=== PATIENT | male | born 1990 | race Caucasian/White ===

== ENCOUNTER 2017-08-14 10:45 | Inpatient (IN) | payer MEDICAID ==
[~2017-08-14] VITALS: Ht 172.7 cm; Wt 58.5 kg
[2017-08-14 10:50] VITALS: BP 109/71
--- NOTE | 2017-08-14 11:00 | NUR ---
PATIENT PRESENTS TO ED WITH MID ABD PAIN SINCE LAST NIGHT; VOMITING X3 EPISODES; ALLERGY TO EGGS AND ACCIDENTLY CONSUMED EGGS LAST NIGHT DENIES HX IBUPROFEN 600MG TAKEN 0900; DENIES DIARRHEA; SKIN IS PINK/WARM/DRY; AAOX4 WITH EVEN AND STEADY GAIT; LUNGS CLEAR BL; HR EVEN AND REGULAR; PT DENIES ANY FEVER, CP, SOB, OR COUGH AT THIS TIME; PATIENT STATES PAIN OF 3/10 AT THIS TIME; VSS; PATIENT POSITIONED FOR COMFORT; HOB ELEVATED; BEDRAILS UP X2; BED DOWN. ER MD MADE AWARE OF PT STATUS.
[2017-08-14] MEDS ORDERED: NACL 0.9% 1,000 ML IV ONE (11:10)
[2017-08-14] MEDS ORDERED: ONDANSETRON 4 MG/2 ML VIAL IVP ONE (11:10)
[2017-08-14 11:44] LABS: BASOPHILS # (AUTO) 0.2 K/uL (0.00-0.22); BASOPHILS % (AUTO) 1.4 % (0.0-2.0); EOSINOPHILS # (AUTO) 0.5 K/uL (0-0.4); EOSINOPHILS % (AUTO) 3.9 % (0.0-4.0); HEMATOCRIT 49.5 % (36-52); HEMOGLOBIN 16.5 g/dL (12.0-18.0); LYMPHOCYTES # (AUTO) 0.6 K/uL (2.0-11.5); LYMPHOCYTES % (AUTO) 4.3 % (20.5-51.1); MEAN CORPUSCULAR HEMOGLOBIN 30 pg (27-31); MEAN CORPUSCULAR HGB CONC 33 g/dL (33-37); MEAN CORPUSCULAR VOLUME 90 fL (80-94); MONOCYTES # (AUTO) 0.6 K/uL (0.8-1.0); MONOCYTES % (AUTO) 4.7 % (1.7-9.3); NEUTROPHILS # (AUTO) 11.8 K/uL (1.8-7.7); NEUTROPHILS % (AUTO) 85.7 % (42.2-75.2); PLATELET COUNT (AUTO) 322 K/uL (140-450); RED BLOOD CELL COUNT(AUTO) 5.48 MIL/uL (4.20-6.10); RED CELL DISTRIBUTION WIDTH 12.3 % (11.6-13.7); WHITE BLOOD COUNT (AUTO) 13.7 K/uL (4.8-10.8)
[2017-08-14 12:10] LABS: ALBUMIN 4.1 g/dL (3.4-5.0); ANION GAP 14.5 (8-16); CARBON DIOXIDE 28.1 mmol/L (21-32); CREATININE 1.1 mg/dL (0.7-1.3); POTASSIUM 4.6 mmol/L (3.5-5.1); TOTAL BILIRUBIN 0.9 mg/dL (0.0-1.0)
[2017-08-14] MEDS ORDERED: fentaNYL 0.05 MG/ML VIAL IVP ONE (12:35)
[2017-08-14] MEDS: NACL 0.9% 1,000 ML IV SCH ×2 (12:57→23:21)
[2017-08-14] MEDS ORDERED: ACETAMINOPHEN 325 MG TAB PO PRN (13:00)
[2017-08-14] MEDS ORDERED: BISACODYL 10 MG SUPP RC SCH (13:00)
[2017-08-14] MEDS ORDERED: ONDANSETRON 4 MG/2 ML VIAL IVP PRN (13:00)
[2017-08-14 13:28] LABS: PROTHROMBIN TIME 10.4 secs (10.8-13.4)
[2017-08-14 13:39] LABS: CHOL/HDL RATIO 2.1 (1-4.5); FREE T4 (FREE THYROXINE) 1.14 ng/dL (0.76-1.46); MAGNESIUM 1.8 mg/dL (1.8-2.4); PHOSPHORUS 2.9 mg/dL (2.5-4.9); THYROID STIMULATING HORMONE 0.85 uIU/mL (0.34-3.74)
[2017-08-14] MEDS ORDERED: SIMETHICONE 80 MG TAB.CHEW PO SCH (14:00)
--- NOTE | 2017-08-14 14:25 | NUR ---
Patient will be admitted to care of Dr Rascon. Admited to tele. Will go to room 112b. Belongings list completed. Report to MICHAEL Salomon.
--- NOTE | 2017-08-14 14:30 | NUR ---
PT ARRIVED TO UNIT VIA GURNEY ACCOMPANIED BY ER NURSE AND PT'S GIRLFRIEND. PT AMBULATED TO BATHROOM WITH STEADY GAIT. BEDSIDE REPORT RECEIVED BY EVENT STAFF. PT IN STABLE CONDITION. VS: TEMP 98.2, HR 62, BP 127/78, RR 18, O2 SAT 100% ON RA. TELE MONITOR APPLIED AND ID BAND. ORIENTED PT TO ROOM AND CALL LIGHT. PT VERBALIZED UNDERSTANDING. WILL CONTINUE TO MONITOR.
[2017-08-14] MEDS ORDERED: LIDOCAINE JELLY 2% 30 ML TUBE TP SCH (14:50)
--- NOTE | 2017-08-14 14:58 | NUR ---
STARTED IV OF NS 1,000 ML BAG INFUSING AT 80ML/HR TO LEFT AC 20G. ADMINISTERED DUCOLAX SUPPOSITORY AND MYLICON PO. PT TOLERATED MEDS WELL. GAVE MED PURPOSE AND SIDE EFFECTS TEACHING. PT VERBALIZED UNDERSTANDING. INSTRUCTED PT ON NG-TUBE PLACEMENT AND BENEFITS. PT AGREED TO NG-TUBE. PLACED IN RIGHT NARE. CHECKED PLACEMENT WITH AUSCULTATION OF 30ML OF AIR. PT TOLERATED NG-TUBE PLACEMENT WELL. NO SIGNS OF DISTRESS OR CYANOSIS. O2 SAT 98% ON ROOM AIR. PT IS SITTING UP IN BED. GIRLFRIEND AT BEDSIDE. CALL LIGHT WITHIN REACH. WILL CONTINUE TO MONITOR.
[2017-08-14 15:00] VITALS: BP 127/78
[2017-08-14 16:00] VITALS: BP 115/74
[2017-08-14] MEDS ORDERED: HYDROcodone/APAP 7.5/325 MG 1 TAB PO PRN (16:45)
[2017-08-14] MEDS ORDERED: KETOROLAC 15 MG/ML VIAL IVP PRN (16:45)
[2017-08-14 17:00] LABS: APPEARANCE,URINE CLEAR (CLEAR); BILIRUBIN,URINE 1+ (NEGATIVE); BLOOD, URINE NEGATIVE (NEGATIVE); COLOR,URINE YELLOW (YELLOW); LEUKOCYTE ESTERASE ,URINE NEGATIVE (NEGATIVE); NITRITE, URINE NEGATIVE (NEGATIVE); UGLUCOSE NEGATIVE (NEGATIVE)
[2017-08-14 17:06] LABS: BARBITURATE, URINE NEG. ng/ml (NEG <=200); BENZODIAZEPINE, URINE NEG. ng/mL (NEG <=200); CANNABINOID, URINE NEG. ng/mL (NEG <=50); COCAINE, URINE NEG. ng/mL (NEG <=300); OPIATE, URINE NEG. ng/mL (NEG <=2000); PHENCYCLIDINE SCREEN,URINE NEG. ng/mL (NEG <=25)
--- NOTE | 2017-08-14 19:15 | NUR ---
ENDORSED PT TO WELDER REPAIR NURSE ROGERIO AT BEDSIDE FOR CONTINUITY OF CARE. PT'S FAMILY AT BEDSIDE. PT GOT UP TO HAVE A BM. PT IN STABLE CONDITION.
--- NOTE | 2017-08-14 19:50 | NUR ---
GOT A CALL FROM RADIOLOGY THAT NGT PLACEMENT WAS ON THE LOWER ESOPHAGUS, ADVANCE NGT AND RE-TAPED, CALLED DR MARTIN TO REORDER KUB FOR VERIFICATION OF PLACEMENT, RESUMED INTERMITTENT SUCTION AND GOT IMMEDIATE DRAINAGE OF CLEAR GASTRIC FLUID 50ML, WILL FOLLOW UP RESULT.
[2017-08-14 20:00] VITALS: BP 109/73
[2017-08-14] MEDS: SIMETHICONE 80 MG TAB.CHEW PO SCH (20:59)
[2017-08-14] MEDS: DOCUSATE SODIUM 100 MG GELCAP PO SCH (20:59)
[2017-08-14] MEDS ORDERED: SIMETHICONE 40 MG/0.6 ML PO SCH (21:00)
--- NOTE | 2017-08-14 21:00 | NUR ---
DUE PO MEDS NOT GIVEN DUE TO SCHEDULED TEST, CONTRAST FOR SMALL BOWEL FOLLOW THROUGH GIVEN VIA NGT, TOLERATED WELL, SUCTION HOLD FOR NOW, DENIES ANY PAIN, ALL NEEDS ATTENDED.
--- NOTE | 2017-08-14 21:58 | NUR ---
1ST PART OF SMALL BOWEL FOLLOW THROUGH TAKEN, TOLERATED WELL, DENIES ANY PAIN, MONITORED CLOSELY.
--- NOTE | 2017-08-14 23:39 | NUR ---
PAGEFahad AND TALKED TO DR MARTIN, RELAYED RESULT OF SMALL BOWEL FOLLOW THROUGH, SHE SAID TO CONTINUE NGT TO LOW INTERMITTENT SUCTION.
[2017-08-15] VITALS: BP 101/60
--- NOTE | 2017-08-15 00:20 | NUR ---
PT GOT BACK FROM BATHROOM, VERBALIZED HAD BM WITH LOOSE STOOL, RESUMED NGT TO LOW INTERMITTENT SUCTION, VITAL SIGNS STABLE, DENIES ANY PAIN, IVF INFUSING WELL, CONTINUE TO MONITOR CLOSELY.
--- NOTE | 2017-08-15 03:50 | NUR ---
PT SLEEPING, EASILY AROUSABLE, VITAL SIGNS STABLE, DENIES ANY PAIN, NGT TO LOW INT SUCTION WITH TOTAL OF 600 ML LIGHT YELLOW GREENISH OUTPUT AT THIS TIME, MONITORED CLOSELY.
[2017-08-15 04:00] VITALS: BP 100/57
[2017-08-15] MEDS: NACL 0.9% 1,000 ML IV SCH ×3 (04:14→19:21)
[2017-08-15] MEDS: SIMETHICONE 80 MG TAB.CHEW PO SCH ×2 (05:12→13:00)
--- NOTE | 2017-08-15 05:17 | NUR ---
DUE PO MEDICATION GIVEN, NGT CLAMPED AND HOLD INT SUCTION AT THIS TIME, PT DENIES ANY PAIN, MONITORED CLOSELY.
--- NOTE | 2017-08-15 06:28 | NUR ---
PT AWAKE, DENIES ANY PAIN, RESUMED NGT TO LOW INTERMITTENT SUCTION, MONITORED CLOSELY.
--- NOTE | 2017-08-15 07:05 | NUR ---
PT SLEEPING, NO SIGNS OF DISTRESS, REPORT GIVEN TO MICHAEL FALLON FOR CONTINUITY OF CARE.
--- NOTE | 2017-08-15 07:06 | NUR ---
RECEIVED REPORT FROM PUMP REBUILDER NURSE ROGERIO AT BEDSIDE FOR CONTINUITY OF CARE. PT IN NO SIGNS OF DISTRESS. NG-TUBE CONNECTED TO LOW SUCTION. IV NS INFUSING AT 80ML/HR. BED IN LOW POSITION, WHEELS LOCKED, CALL LIGHT WITHIN REACH. WILL CONTINUE TO MONITOR.
[2017-08-15 07:16] LABS: BASOPHILS # (AUTO) 0.3 K/uL (0.00-0.22); BASOPHILS % (AUTO) 3.2 % (0.0-2.0); EOSINOPHILS # (AUTO) 1.1 K/uL (0-0.4); EOSINOPHILS % (AUTO) 12.3 % (0.0-4.0); HEMATOCRIT 43.1 % (36-52); HEMOGLOBIN 14.6 g/dL (12.0-18.0); LYMPHOCYTES % (AUTO) 11.3 % (20.5-51.1); MEAN CORPUSCULAR HEMOGLOBIN 31 pg (27-31); MEAN CORPUSCULAR HGB CONC 34 g/dL (33-37); MEAN CORPUSCULAR VOLUME 91 fL (80-94); MONOCYTES # (AUTO) 0.9 K/uL (0.8-1.0); MONOCYTES % (AUTO) 9.7 % (1.7-9.3); NEUTROPHILS # (AUTO) 5.6 K/uL (1.8-7.7); NEUTROPHILS % (AUTO) 63.5 % (42.2-75.2); PLATELET COUNT (AUTO) 265 K/uL (140-450); RED BLOOD CELL COUNT(AUTO) 4.73 MIL/uL (4.20-6.10); RED CELL DISTRIBUTION WIDTH 12.2 % (11.6-13.7); WHITE BLOOD COUNT (AUTO) 8.9 K/uL (4.8-10.8)
[2017-08-15 07:18] LABS: ANION GAP 11.6 (8-16); CARBON DIOXIDE 29.2 mmol/L (21-32); POTASSIUM 3.8 mmol/L (3.5-5.1)
--- NOTE | 2017-08-15 07:30 | NUR ---
NG-TUBE DISCONNECTED BY DR. HANSEN. O2 SAT 97% ON RA. NO SIGNS OF DISTRESS. WILL CONTINUE TO MONITOR.
[2017-08-15 08:00] VITALS: BP 100/57
[2017-08-15] MEDS: PANTOPRAZOLE 40 MG INJ VIAL IVP SCH (08:27)
[2017-08-15] MEDS: METOCLOPRAMIDE 10 MG TAB PO SCH ×3 (08:27→16:25)
[2017-08-15] MEDS: DOCUSATE SODIUM 100 MG GELCAP PO SCH ×2 (08:28→20:18)
--- NOTE | 2017-08-15 09:22 | NUR ---
PATIENT HAS BEEN SCREENED AND CATEGORIZED MODERATE NUTRITION RISK FOR GI PROBLEMS. PATIENT WILL BE SEEN WITHIN 3-5 DAYS OF ADMISSION. 08/16/17-08/18/[address]
--- NOTE | 2017-08-15 09:58 | NUR ---
CM NOTE PER [facility] JAMES, REVIEWS SHOULD ONLY BE SENT TO [facility] INITIAL REVIEW FAXED TO [facility] [phone] # [phone]
[2017-08-15 12:00] VITALS: BP 110/64
--- NOTE | 2017-08-15 12:00 | NUR ---
CHECKED ON PT IN ROOM. PT STARTED ON CLEAR LIQUID DIET. TOLERATING WELL. DENIES ABD PAIN. NO SIGNS OF DISTRESS. PT IS RESTING IN BED WITH BLANKETS COVERED. BED IN LOW POSITION, CALL LIGHT WITHIN REACH. WILL CONTINUE TO MONITOR.
--- NOTE | 2017-08-15 13:21 | NUR ---
NON-ADMINISTERED MYLICON. PT STATED HE WAS PASSING GAS AND HAD NO ABD PAIN OR DISCOMFORT. STATED HE WANTS TO BE ABLE TO START EATING REGULAR DIET. ON CLEAR LIQUID DIET NOW TOLERATING WELL.
[2017-08-15] MEDS ORDERED: LIDOCAINE JELLY 2% 30 ML TUBE TP SCH (14:50)
[2017-08-15 16:00] VITALS: BP 104/65
--- NOTE | 2017-08-15 16:30 | NUR ---
ADMINISTERED REGLAN. PT TOLERATED WELL. PT DENIES ABD PAIN, NAUSEA OR VOMITING. PT REPORTED HE HAD A MEDIUM SIZE BM TODAY. NO SIGNS OF DISTRESS. WILL CONTINUE TO MONITOR.
--- NOTE | 2017-08-15 19:15 | NUR ---
ENDORSED PT TO CONVENTION WORKER NURSE ROGERIO AT BEDSIDE FOR CONTINUITY OF CARE. PT IN STABLE CONDITION.
--- NOTE | 2017-08-15 19:20 | NUR ---
RECEIVED PT AWAKE USING HIS CELLPHONE, VITAL SIGNS STABLE, DENIES ANY PAIN, TOLERATING CLEAR LIQUID DIET, VERBALIZED PASSING GAS AND HAD 2 LOOSE BM MODERATE AMOUNT TODAY, IVF INFUSING WELL, PLAN OF CARE DISCUSS, CALL LIGHT WITHIN REACH.
[2017-08-15 20:00] VITALS: BP 110/73
--- NOTE | 2017-08-15 20:30 | NUR ---
PT REFUSED DUE COLACE, RISK AND BENEFITS EXPLAINED, ALL NEEDS ATTENDED, JELLO PROVIDED, TOLERATED WELL.
--- NOTE | 2017-08-15 23:35 | NUR ---
PT AWAKE WATCHING MOVIE ON HIS CELLPHONE, VITAL SIGNS STABLE, DENIES ANY PAIN, IVF INFUSING WELL, CONTINUE TO MONITOR CLOSELY.
[2017-08-16] VITALS: BP 106/75
[2017-08-16] MEDS: NACL 0.9% 1,000 ML IV SCH ×2 (02:08→05:21)
--- NOTE | 2017-08-16 03:50 | NUR ---
PT SLEEPING, EASILY AROUSABLE, VITAL SIGNS STABLE, SB ON TELE, ASYMPTOMATIC, DENIES ANY PAIN, IVF INFUSING WELL, MONITORED CLOSELY.
[2017-08-16 04:00] VITALS: BP 98/55
[2017-08-16 06:35] LABS: HEMATOCRIT 39.6 % (36-52); HEMOGLOBIN 13.7 g/dL (12.0-18.0); MEAN CORPUSCULAR HEMOGLOBIN 32 pg (27-31); MEAN CORPUSCULAR HGB CONC 35 g/dL (33-37); MEAN CORPUSCULAR VOLUME 91 fL (80-94); PLATELET COUNT (AUTO) 234 K/uL (140-450); RED BLOOD CELL COUNT(AUTO) 4.34 MIL/uL (4.20-6.10); RED CELL DISTRIBUTION WIDTH 12.5 % (11.6-13.7); WHITE BLOOD COUNT (AUTO) 6.9 K/uL (4.8-10.8)
[2017-08-16] MEDS: METOCLOPRAMIDE 10 MG TAB PO SCH (06:35)
[2017-08-16 06:40] LABS: ANION GAP 10.6 (8-16); CARBON DIOXIDE 29.1 mmol/L (21-32); POTASSIUM 3.7 mmol/L (3.5-5.1)
--- NOTE | 2017-08-16 06:42 | NUR ---
DUE PO MEDICATION TAKEN, TOLERATED WELL, DENIES ANY PAIN, IVF INFUSING WELL, MONITORED CLOSELY.
--- NOTE | 2017-08-16 07:12 | NUR ---
PT SLEEPING, NO SIGNS OF DISTRESS, REPORT GIVEN TO MICHAEL FALLON FOR CONTINUITY OF CARE.
--- NOTE | 2017-08-16 07:13 | NUR ---
RECEIVED REPORT FROM TIRE SHOP MANAGER NURSE ROGERIO AT BEDSIDE FOR CONTINUITY OF CARE. PT IS SLEEPING RIGHT NOW. NO SIGNS OF DISTRESS.
[2017-08-16 07:51] LABS: EOSINOPHILS % (MANUAL) 14 % (0-4); LYMPHOCYTES % (MANUAL) 28 % (20-46); MONOCYTES % (MANUAL) 6 % (5-12)
[2017-08-16 08:00] VITALS: BP 109/70
[2017-08-16] MEDS: PANTOPRAZOLE 40 MG INJ VIAL IVP SCH (08:28)
[2017-08-16] MEDS: DOCUSATE SODIUM 100 MG GELCAP PO SCH (08:29)
[2017-08-16] MEDS ORDERED: METO-485 PO (08:46)
[2017-08-16] MEDS ORDERED: PANT40EC PO (08:46)
--- NOTE | 2017-08-16 09:24 | NUR ---
CM NOTE CONCURRENT REVIEW FAXED TO [facility] [phone] # [phone]
--- NOTE | 2017-08-16 10:20 | NUR ---
PT D/C'D TO GO HOME. GAVE INSTRUCTIONS, RX, WORK NOTE, AND FORMS. PT VERBALIZED UNDERSTANDING AND SIGNED FORMS. D/C IV FROM LEFT AC 20G. IV CATHETER TIP INTACT. APPLIED DRESSING AND PRESSURE TO SITE. NO BLEEDING NOTED. REMOVED ID BAND. PT CHANGED IN OWN CLOTHES AND LEFT WITH ALL PERSONAL BELONGINGS. LEFT UNIT WITH AMBULATION WITH STEADY GAIT. LEFT IN STABLE CONDITION.
[2017-08-16] MEDS ORDERED: SIMETHICONE 80 MG TAB.CHEW PO PRN (13:00)
== END 2017-08-16 10:20 | disposition home or self-care (01) | DRG 254 ==
LOC: MED 10:45 → MTU 12:51
PROVIDERS: ADMIT Family Medicine; ATTEND Family Medicine
PROC: 0D9670Z Drainage of Stomach with Drainage Device, Via Natural or Artificial Opening (ICD-10-PCS; principal; 2017-08-14)
DX: K59.00 Constipation, unspecified (principal); F43.9 Reaction to severe stress, unspecified; K21.9 Gastro-esophageal reflux disease without esophagitis; Z91.012 Allergy to eggs
CPT/HCPCS: 36415; 71010; 74000; 74250; 80048; 80053; 80305; 81003; 82150; 83036; 83690; 83735; 83880; 84100; 84439; 84443; 85025; 85610; 85730; 87081; 87086; 93005; 96361; 96374; 96375; 99285; C9113; J2405; J3010; J7030; J8597; Q0092